=== PATIENT | male | born 1995 | race Caucasian/White ===

== ENCOUNTER 2017-01-04 17:36 | Emergency (ER) | payer SELFPAY ==
--- NOTE | 2017-01-04 23:15 | Emergency Department Report ---
ED Male HPI - General Chief complaint: Urogenital-Male Stated complaint: STD Time Seen by Provider: 01/04/17 23:12 Source: patient Mode of arrival: Ambulatory Limitations: No Limitations - History of Present Illness Initial comments: 21-year-old male past medical history receptive anal sex presents with complaint of rectal pain and intermittent dysuria. Denies fever or chills denies abdominal pain. States he practices receptive anal sex. Is concerned that he may have an STD. MD Complaint: penile discharge, dysuria - Related Data Previous Rx's Medication Instructions Recorded Last Taken Type Ibuprofen [Motrin] 600 mg PO Q8H PRN #25 tablet 01/04/17 Unknown Rx Ciprofloxacin HCl [Ciprofloxacin 500 mg PO Q12H #14 tab 01/05/17 Unknown Rx TAB] Ondansetron [Zofran Odt] 4 mg PO Q8H PRN #10 tab.rapdis 01/05/17 Unknown Rx Allergies Allergy/AdvReac Type Severity Reaction Status Date / Time No Known Allergies Allergy Verified 01/04/17 18:10 ED Review of Systems ROS: Stated complaint: STD Other details as noted in HPI ED Past Medical Hx - Past Medical History Previous Medical History?: No - Surgical History Past Surgical History?: No - Social History Smoking Status: Never Smoker - Medications Home Medications: Home Medications Medication Instructions Recorded Confirmed Last Taken Type Ibuprofen [Motrin] 600 mg PO Q8H PRN #25 tablet 01/04/17 Unknown Rx Ciprofloxacin HCl [Ciprofloxacin 500 mg PO Q12H #14 tab 01/05/17 Unknown Rx TAB] Ondansetron [Zofran Odt] 4 mg PO Q8H PRN #10 tab.rapdis 01/05/17 Unknown Rx ED Physical Exam - General Limitations: No Limitations General appearance: alert, in no apparent distress - Head Head exam: Present: atraumatic, normocephalic - Eye Eye exam: Present: normal appearance, PERRL, EOMI - ENT ENT exam: Present: mucous membranes moist - Neck Neck exam: Present: normal inspection - Respiratory Respiratory exam: Present: normal lung sounds bilaterally. Absent: respiratory distress - Cardiovascular Cardiovascular Exam: Present: regular rate, normal rhythm. Absent: systolic murmur, diastolic murmur, rubs, gallop - GI/Abdominal GI/Abdominal exam: Present: soft, normal bowel sounds - Rectal Rectal exam: Present: deferred, hemorrhoids, prostate tenderness - exam: Present: normal inspection External exam: Present: normal external exam - Extremities Exam Extremities exam: Present: normal inspection - Back Exam Back exam: Present: normal inspection - Neurological Exam Neurological exam: Present: alert, oriented X3 - Psychiatric Psychiatric exam: Present: normal affect, normal mood - Skin Skin exam: Present: warm, dry, intact, normal color. Absent: rash ED Course Vital Signs 01/04/17 18:10 Temperature 98.6 F Pulse Rate 99 H Respiratory 16 Rate Blood Pressure 121/88 O2 Sat by Pulse 100 Oximetry ED Medical Decision Making - Lab Data Result diagrams: 01/05/17 00:17 01/05/17 00:17 - Medical Decision Making A/P: Concern for STD exposure, external hemorrhoids, possible prostatitis 1-As patient practices receptive anal sex and does complain of some penile discharge with intermittent dysuria for several weeks it is reasonable to treat patient empirically for possible prostatitis. Chlamydia and gonorrhea culture sent. On clinical exam patient does have prostate tenderness. No visible anal fissures, one external visible hemorrhoid. 2-azithromycin and ceftriaxone given in the ED 3-patient referred to primary care and urology 4- as per up[employer]to[employer]date[employer] will give patient a course of ciprofloxacin for approximately 4 weeks and I advised patient to follow-up with urology 5- patient referred to gastroenterology for hemorrhoids. Advised them to have a high-fiber diet to use Motrin when necessary and sitz bath when necessary Critical care attestation.: If time is entered above; I have spent that time in minutes in the direct care of this critically ill patient, excluding procedure time. ED Disposition Clinical Impression: Rectal pain, Prostatitis, acute Urinary tract infection Qualifiers: Urinary tract infection type: urethritis Qualified Code(s): N34.2 - Other urethritis Disposition: - TO HOME OR SELFCARE Is pt being admited?: No Does the pt Need Aspirin: No Condition: Stable Instructions: Hemorrhoids (ED), Prostatitis (ED) Additional Instructions: Urology Dr. Toussaint [phone] Patient advised to return to the ED for any persistent fevers chills worsened rectal pain and abdominal pain nausea and vomiting, dysuria or increased urinary frequency or urethral discharge. Patient stated he understood these instructions Prescriptions: Ciprofloxacin HCl [Ciprofloxacin TAB] 500 mg PO Q12H #14 tab Ibuprofen [Motrin] 600 mg PO Q8H PRN #25 tablet PRN Reason: Pain Ondansetron [Zofran Odt] 4 mg PO Q8H PRN #10 tab.rapdis PRN Reason: Nausea Referrals: LEONEL WALSH MD [Staff Physician] - 3-5 Days [facility] [Provider Group] - 3-5 Days [facility] [Provider Group] - 3-5 Days Forms: Accompanied Note, Work/School Release Form(ED) Time of Disposition: 00:01
[2017-01-04] MEDS ORDERED: ROCEPHIN IM ONE (23:35)
[2017-01-04] MEDS ORDERED: XYLOCAINE 1% MPF 5 mL INFILTRATI ONE (23:35)
[2017-01-04] MEDS ORDERED: ZITHROMAX PO ONE (23:35)
[2017-01-05 00:05] LABS: Bacteria,Urine 1+ /HPF (Negative); Bilirubin,Urine NEG (Negative); Blood,Urine NEG (Negative); Ketones,Urine TR mg/dL (Negative); Leukocyte Esterase,Urine LG (Negative); Mucus,Urine 3+ /HPF; Nitrite,Urine NEG (Negative)
[2017-01-05 00:26] LABS: Basophils % (Auto) 0.6 % (0.0-1.8); Eosinophils % (Auto) 1.2 % (0.0-4.3); Hematocrit 45.4 % (35.5-45.6); Hemoglobin 14.5 gm/dl (11.8-15.2); Mean Corpuscular HGB Conc 32 % (32-34); Mean Corpuscular Hemoglobin 28 pg (28-32); Mean Corpuscular Volume 87 fl (84-94); Platelet Count 197 K/mm3 (140-440); Red Cell Distribution Width 13.6 % (13.2-15.2); White Blood Count 12.2 K/mm3 (4.5-11.0)
[2017-01-05 00:53] LABS: Anion Gap 21 mmol/L; Blood Urea Nitrogen 10 mg/dL (9-20); Calcium 9.4 mg/dL (8.4-10.2); Carbon Dioxide 22 mmol/L (22-30); Chloride 101.9 mmol/L (98-107); Glucose 91 mg/dL (75-100); Potassium 3.6 mmol/L (3.6-5.0); Sodium 141 mmol/L (137-145)
[2017-01-05] MEDS ORDERED: ZOFRAN ODT PO ONE (01:03)
[2017-01-05 02:19] VITALS: BP 127/80
== END 2017-01-05 01:05 | disposition home or self-care (01) ==
LOC: ED 17:36
DX: N41.9 Inflammatory disease of prostate, unspecified (principal); N34.2 Other urethritis
CPT/HCPCS: 36415; 80048; 81001; 85025; 87086; 87591; 96372; 99283; J0696; Q0162

== ENCOUNTER 2017-07-28 16:18 | Emergency (ER) | payer SELFPAY ==
--- NOTE | 2017-07-28 20:14 | Emergency Department Report ---
ED GI Bleed HPI - General Chief complaint: Abdominal Pain Stated complaint: ABDOMINAL PAIN Time Seen by Provider: 07/28/17 19:27 Source: patient Mode of arrival: Ambulatory Limitations: No Limitations - History of Present Illness Initial comments: Patient is a 22-year-old [place] male who is presenting with bleeding from the anus. Patient states that early today he was in a shower and he started noticing that there was blood in the water. Patient states he has had some constipation and history of hemorrhoids. Patient states the bleeding was painless initially. Patient states says he's had some minor irritation at the anus. Patient denies any diarrhea fevers chills nausea vomiting abdominal pain at this time. - Related Data Previous Rx's Medication Instructions Recorded Last Taken Type Ibuprofen [Motrin] 600 mg PO Q8H PRN #25 tablet 01/04/17 Unknown Rx Ciprofloxacin HCl [Ciprofloxacin 500 mg PO Q12H #14 tab 01/05/17 Unknown Rx TAB] Ondansetron [Zofran Odt] 4 mg PO Q8H PRN #10 tab.rapdis 01/05/17 Unknown Rx Docusate Sodium [Colace] 100 mg PO BID #30 capsule 07/28/17 Unknown Rx Hydrocortisone [Anusol-Hc] 30 gm RC BID 5 Days cream..g. 07/28/17 Unknown Rx Allergies Allergy/AdvReac Type Severity Reaction Status Date / Time No Known Allergies Allergy Verified 07/28/17 16:50 ED Review of Systems ROS: Stated complaint: ABDOMINAL PAIN Other details as noted in HPI Comment: All other systems reviewed and negative ED Past Medical Hx - Past Medical History Previous Medical History?: No - Surgical History Past Surgical History?: No - Social History Smoking Status: Never Smoker - Medications Home Medications: Home Medications Medication Instructions Recorded Confirmed Last Taken Type Ibuprofen [Motrin] 600 mg PO Q8H PRN #25 tablet 01/04/17 Unknown Rx Ciprofloxacin HCl [Ciprofloxacin 500 mg PO Q12H #14 tab 01/05/17 Unknown Rx TAB] Ondansetron [Zofran Odt] 4 mg PO Q8H PRN #10 tab.rapdis 01/05/17 Unknown Rx Docusate Sodium [Colace] 100 mg PO BID #30 capsule 07/28/17 Unknown Rx Hydrocortisone [Anusol-Hc] 30 gm RC BID 5 Days cream..g. 07/28/17 Unknown Rx ED Physical Exam - General Limitations: No Limitations General appearance: alert, in no apparent distress - Head Head exam: Present: atraumatic, normocephalic - Eye Eye exam: Present: normal appearance - ENT ENT exam: Present: mucous membranes moist - Neck Neck exam: Present: normal inspection - Respiratory Respiratory exam: Present: normal lung sounds bilaterally. Absent: respiratory distress - Cardiovascular Cardiovascular Exam: Present: regular rate, normal rhythm. Absent: systolic murmur, diastolic murmur, rubs, gallop - GI/Abdominal GI/Abdominal exam: Present: soft, normal bowel sounds - Rectal Rectal exam: Present: hemorrhoids (there is a small decompressed hemorrhoid present) - Extremities Exam Extremities exam: Present: normal inspection - Back Exam Back exam: Present: normal inspection - Neurological Exam Neurological exam: Present: alert, oriented X3 - Psychiatric Psychiatric exam: Present: normal affect, normal mood - Skin Skin exam: Present: warm, dry, intact, normal color. Absent: rash ED Course Vital Signs 07/28/17 16:50 Temperature 98 F Pulse Rate 68 Respiratory 18 Rate Blood Pressure 147/70 O2 Sat by Pulse 100 Oximetry ED Medical Decision Making - Medical Decision Making Patient be started on Anusol be discharged home. Critical care attestation.: If time is entered above; I have spent that time in minutes in the direct care of this critically ill patient, excluding procedure time. ED Disposition Clinical Impression: Hemorrhoid Qualifiers: Hemorrhoid type: unspecified Qualified Code(s): K64.9 - Unspecified hemorrhoids Disposition: DC- TO HOME OR SELFCARE Is pt being admited?: No Does the pt Need Aspirin: No Condition: Stable Instructions: Hemorrhoids (ED) Prescriptions: Docusate Sodium [Colace] 100 mg PO BID #30 capsule Hydrocortisone [Anusol-Hc] 30 gm RC BID 5 Days cream..g. Referrals: PRIMARY CARE,MD [Primary Care Provider] - 3-5 Days
[2017-07-28 21:35] VITALS: BP 142/71
== END 2017-07-28 20:19 | disposition home or self-care (01) ==
LOC: ED 16:18
DX: K64.9 Unspecified hemorrhoids (principal)
CPT/HCPCS: 99282

== ENCOUNTER 2017-08-16 18:12 | Emergency (ER) | payer SELFPAY ==
[2017-08-16 18:46] VITALS: BP 119/64
[2017-08-16 19:39] LABS: Bilirubin,Urine NEG (Negative); Blood,Urine NEG (Negative); Color,Urine Yellow (Yellow); Mucus,Urine 1+ /HPF; Protein,Urine <15 mg/dL mg/dL (Negative)
[2017-08-16 19:40] LABS: WBC,Urine > 182.0 /HPF (0.0-6.0)
[2017-08-16] MEDS ORDERED: ZITHROMAX PO ONE (23:01)
[2017-08-16] MEDS ORDERED: ROCEPHIN IM ONE (23:01)
[2017-08-16] MEDS ORDERED: XYLOCAINE 1% MPF 5 mL INFILTRATI ONE (23:01)
--- NOTE | 2017-08-16 23:06 | Emergency Department Report ---
ED Male HPI - General Chief complaint: Urogenital-Male Stated complaint: PENIS DISCHARGE Time Seen by Provider: 08/16/17 22:23 Source: patient Mode of arrival: Ambulatory Limitations: No Limitations - History of Present Illness Initial comments: This is a 22-year-old male nontoxic, well nourished in appearance, no acute signs of distress presents to the ED with c/o of dysuria and penile discharge 2 days. They state he had a unprotected sex last week and then developed the symptoms 2 days ago. Patient stated he went to a to clinic and was tested for gonorrhea Chlamydia and has results of positive gonorrhea the patient stated that he left and did not get treatment. Patient at the [facility] is "out of the closet". Patient denies any back pain, hematochezia area , polyuria, fever, chills, nausea, vomiting, chest pain, shortness of breath or abdominal pain. Patient denies any testicular pain or testicular swelling. Patient denies any allergies. Denies any past medical history. MD Complaint: penile discharge, dysuria -: days(s) (2) Location: penis Radiation: none Severity: mild Severity scale (0 -10): 8 Quality: burning Consistency: constant Improves with: none Worsens with: urination discharge, dysuria. denies: swelling, mass, rash, urinary retention, blood in urine, fever, nausea/vomiting, incontinence - Related Data Previous Rx's Medication Instructions Recorded Last Taken Type Ibuprofen [Motrin] 600 mg PO Q8H PRN #25 tablet 01/04/17 Unknown Rx Ciprofloxacin HCl [Ciprofloxacin 500 mg PO Q12H #14 tab 01/05/17 Unknown Rx TAB] Ondansetron [Zofran Odt] 4 mg PO Q8H PRN #10 tab.rapdis 01/05/17 Unknown Rx Docusate Sodium [Colace] 100 mg PO BID #30 capsule 07/28/17 Unknown Rx Hydrocortisone [Anusol-Hc] 30 gm RC BID 5 Days cream..g. 07/28/17 Unknown Rx Ciprofloxacin HCl [Ciprofloxacin 500 mg PO Q12HR #10 tab 08/16/17 Unknown Rx TAB] Allergies Allergy/AdvReac Type Severity Reaction Status Date / Time No Known Allergies Allergy Verified 07/28/17 16:50 ED Review of Systems ROS: Stated complaint: PENIS DISCHARGE Other details as noted in HPI Constitutional: denies: chills, fever Eyes: denies: eye pain, eye discharge, vision change ENT: denies: ear pain, throat pain Respiratory: denies: cough, shortness of breath, wheezing Cardiovascular: denies: chest pain, palpitations Endocrine: no symptoms reported Gastrointestinal: denies: abdominal pain, nausea, diarrhea Genitourinary: dysuria, discharge. denies: urgency Musculoskeletal: denies: back pain, joint swelling, arthralgia Skin: denies: rash, lesions Neurological: denies: headache, weakness, paresthesias Psychiatric: denies: anxiety, depression Hematological/Lymphatic: denies: easy bleeding, easy bruising ED Past Medical Hx - Past Medical History Previous Medical History?: Yes Additional medical history: STD - Surgical History Past Surgical History?: No - Social History Smoking Status: Current Some Day Smoker Substance Use Type: None - Medications Home Medications: Home Medications Medication Instructions Recorded Confirmed Last Taken Type Ibuprofen [Motrin] 600 mg PO Q8H PRN #25 tablet 01/04/17 Unknown Rx Ciprofloxacin HCl [Ciprofloxacin 500 mg PO Q12H #14 tab 01/05/17 Unknown Rx TAB] Ondansetron [Zofran Odt] 4 mg PO Q8H PRN #10 tab.rapdis 01/05/17 Unknown Rx Docusate Sodium [Colace] 100 mg PO BID #30 capsule 07/28/17 Unknown Rx Hydrocortisone [Anusol-Hc] 30 gm RC BID 5 Days cream..g. 07/28/17 Unknown Rx Ciprofloxacin HCl [Ciprofloxacin 500 mg PO Q12HR #10 tab 08/16/17 Unknown Rx TAB] ED Physical Exam - General Limitations: No Limitations General appearance: alert, in no apparent distress - Head Head exam: Present: atraumatic, normocephalic - Eye Eye exam: Present: normal appearance Pupils: Present: normal accommodation - ENT ENT exam: Present: normal exam, mucous membranes moist - Neck Neck exam: Present: normal inspection, full ROM - Respiratory Respiratory exam: Present: normal lung sounds bilaterally. Absent: respiratory distress, wheezes, rales, rhonchi, stridor, chest wall tenderness, accessory muscle use, decreased breath sounds, prolonged expiratory - Cardiovascular Cardiovascular Exam: Present: regular rate, normal rhythm, normal heart sounds. Absent: irregular rhythm, systolic murmur, diastolic murmur, rubs, gallop - GI/Abdominal GI/Abdominal exam: Present: soft, normal bowel sounds. Absent: distended, tenderness, guarding, rebound, rigid, diminished bowel sounds - Rectal Rectal exam: Present: deferred - exam: Present: normal inspection, urethral discharge (yellow). Absent: testicular tenderness, scrotal swelling, vertical testicular lie External exam: Present: normal external exam, other (No testicular swelling or pain). Absent: erythema, swelling, lesions, lacerations, ecchymosis, bleeding - Extremities Exam Extremities exam: Present: normal inspection, full ROM, normal capillary refill - Back Exam Back exam: Present: normal inspection, full ROM. Absent: tenderness, CVA tenderness (R), CVA tenderness (L), muscle spasm, paraspinal tenderness, vertebral tenderness, rash noted - Neurological Exam Neurological exam: Present: alert, oriented X3, normal gait - Psychiatric Psychiatric exam: Present: normal affect, normal mood - Skin Skin exam: Present: warm, dry, intact, normal color. Absent: rash ED Course Vital Signs 08/16/17 18:42 Temperature 97.9 F Pulse Rate 96 H Respiratory 20 Rate Blood Pressure 119/64 O2 Sat by Pulse 100 Oximetry - Reevaluation(s) Reevaluation #1: 08/16/17 23:05 Patient is speaking in full sentences with no signs of distress noted. ED Medical Decision Making - Medical Decision Making this is a 22-year-old male that presents with UTI and possible STD. UA obtained and elevated WBCs and leukocytes. Patient is stable and was examined by me. Vital signs are stable. Negative CVA tenderness. Patient did receive 1 g of Rocephin and 1 g of azithromycin. Patient stated that he did had a positive gonorrhea so I did not test for STD. I treated empirically. Patient is discharged with ciprofloxacin. Patient was instructed to Follow-up with a primary care doctor in 3-5 days or if symptoms worsen and continue return to emergency room as soon as possible. At time of discharge, the patient does not seem toxic or ill in appearance. No acute signs of distress noted. Patient agrees to discharge treatment plan of care. No further questions noted by the patient. Critical care attestation.: If time is entered above; I have spent that time in minutes in the direct care of this critically ill patient, excluding procedure time. ED Disposition Clinical Impression: Possible exposure to STD UTI (urinary tract infection) Qualifiers: Urinary tract infection type: site unspecified Hematuria presence: without hematuria Qualified Code(s): N39.0 - Urinary tract infection, site not specified Disposition: DC-01 TO HOME OR SELFCARE Is pt being admited?: No Does the pt Need Aspirin: No Condition: Stable Instructions: Urinary Tract Infection in Men (ED), Safe Sex (ED), Ciprofloxacin (By mouth) Additional Instructions: Follow-up with a primary care doctor in 3-5 days or if symptoms worsen and continue return to emergency room as soon as possible. Prescriptions: Ciprofloxacin HCl [Ciprofloxacin TAB] 500 mg PO Q12HR #10 tab Referrals: PRIMARY CARE, [Primary Care Provider] - 3-5 Days TATE OLIVERA MD [Staff Physician] - 3-5 Days [facility] [Outside] - 3-5 Days [facility] [Outside] - 3-5 Days Forms: Work/School Release Form(ED)
== END 2017-08-17 00:15 | disposition home or self-care (01) ==
LOC: ED 18:12
DX: N39.0 Urinary tract infection, site not specified (principal); F17.200 Nicotine dependence, unspecified, uncomplicated
CPT/HCPCS: 81001; 87086; 96372; 99283; J0696